=== PATIENT | male | born 1985 | race Caucasian/White ===

== ENCOUNTER 2024-01-25 17:14 | Emergency (ER) | payer OTHER, SELFPAY ==
--- NOTE | ~2024-01-25 | XR_ITS ---
EXAMINATION: XR chest 2V Exam Date/Time: 01/25/2024 17:52 CONTROL TECHNICIAN HISTORY: cough, sob Comparison: None. RESULT: Lines, tubes, and devices: None. Lungs and pleura: Patchy segmental airspace disease in the medial left lower lung. Cardiomediastinal silhouette: Unremarkable. Other: No acute osseous or upper abdominal finding. IMPRESSION: Segmental left lower lobe airspace disease concerning for pneumonia. Reviewed, dictated and finalized at location K. ROL TECHNICIAN
[2024-01-25 17:16] VITALS: BP 134/88; PULSE 120; RESP 20; TEMP 37.7; O2SAT 96
--- NOTE | 2024-01-25 17:32 | ECG_ITS ---
Test Date: 2024-01-25 17:41:00 Measurements Intervals [place] Rate: 114 P: 65 VA: 152 QRS: 153 QRSD: 88 T: 43 QT: 297 QTc: 410 Interpretive Statements SINUS TACHYCARDIA INDETERMINATE AXIS No previous ECG available for comparison Electronically Signed On 01-25-2024 22:00:18 HIP HOP DANCER by Scott Sherman M.D.
[2024-01-25 18:16] LABS: Basophils Percent Auto 0.4 % (0.2-1.2); Eosinophils Percent Auto 0.4 % (0-4.4); Hematocrit 41.5 % (42.0-52.0); Hemoglobin 14.3 g/dL (14.0-18.0); Immature Granulocyte Absolute 0.04 K/mm3 (0.00-0.031); Immature Granulocyte Percent A 0.4 % (0-0.5); Lymphocytes Absolute Auto 0.49 K/mm3 (0.9-3.2); Lymphocytes Percent Auto 5.1 % (18.3-44.2); Mean Corpuscular HGB Conc 34.5 g/dl (32-36); Mean Corpuscular Hemoglobin 30.1 pg (26-34); Mean Corpuscular Volume 87.4 fl (80-100); Mean Platelet Volume 9.4 fl (7.4-10.4); Monocytes Absolute Auto 0.7 K/mm3 (0.1-0.6); Monocytes Percent Auto 7.5 % (2.6-8.5); Neutrophils Absolute Auto 8.3 K/mm3 (1.3-6.7); Neutrophils Percent Auto 86.2 % (45.5-73.1); Platelet Count Result 321 k/mm3 (150-375); Red Blood Count 4.75 M/mm3 (4.6-6.20); Red Cell Distribution Width 13.2 % (11.5-14.5); White Blood Count 9.7 K/mm3 (4.5-10.0)
[2024-01-25 18:26] VITALS: PULSE 105
[2024-01-25 18:26] LABS: Alanine Aminotransferase 45 U/L (6-50); Albumin Level 4.2 g/dL (3.5-5.1); Alkaline Phosphatase 78 U/L (38-126); Anion Gap 4 mmol/L (4-12); Aspartate Amino Transferase 28 U/L (17-59); Bilirubin,Total 0.4 mg/dL (0.2-1.3); Blood Urea Nitrogen 16 mg/dL (9-20); Calcium 9.1 mg/dL (8.4-10.2); Carbon Dioxide 26 mmol/L (22-30); Chloride 107 mmol/L (98-107); Estimated CRCL calculation 108 ml/min; Estimated Glomerular Filt Rate > 60; Glucose 100 mg/dL (65-110); Lipase 78 U/L (23-300); Potassium 4.1 mmol/L (3.4-5.0); Sodium 137 mmol/L (137-145)
[2024-01-25 18:27] VITALS: BP 130/71; PULSE 103; RESP 25; TEMP 37.6; O2SAT 97
--- NOTE | 2024-01-25 18:30 | ED_ITS ---
HPI - Weakness General Chief complaint: Weakness Stated complaint: I feel like shit Time Seen by Provider: 01/25/24 17:43 History of Present Illness HPI Narrative: 38-year-old male presenting with general malaise. States that it started this morning associated with body aches, cough, sore throat. Has been taking Tylenol without relief. Also complains of a headache. States that his brother was actually just diagnosed with pneumonia. Related Data Allergies Allergy/AdvReac Type Severity Reaction Status Date / Time No Known Allergies Allergy Mild Verified 08/31/07 23:09 Review of Systems 2 Review of Systems: All systems reviewed & are unremarkable except as noted in HPI and below Exam 2 Narrative: GENERAL: Nontoxic, looks uncomfortable, cooperative HEAD: Normocephalic, atraumatic. EYES: PERRLA and EOMI. ENT: Mucous membranes moist. NECK: Supple. CHEST: Clear to auscultation. No respiratory distress. HEART: Tachycardic, regular rhythm ABDOMEN: Soft, nontender, nondistended. EXTREMITIES: Normal range of motion. No edema. SKIN: Warm, dry, no rash. NEURO: Alert and oriented x3. PSYCH: Normal mood and affect. Course Vital Signs Vital signs: Vital Signs Temperature 99.8 F H 01/25/24 17:16 Pulse Rate 120 H 01/25/24 17:16 Respiratory Rate 20 01/25/24 17:16 Blood Pressure 134/88 01/25/24 17:16 Pulse Oximetry 96 01/25/24 17:16 Oxygen Delivery Room Air 01/25/24 17:16 Temperature 99.7 F H 01/25/24 18:27 Pulse Rate 103 H 01/25/24 18:27 Respiratory Rate 25 H 01/25/24 18:27 Blood Pressure 130/71 01/25/24 18:27 Pulse Oximetry 97 01/25/24 18:27 Oxygen Delivery Room Air 01/25/24 18:27 MDM - Weakness MDM Narrative Medical decision making narrative: 38-year-old male presenting with general malaise, cough, nausea, headache. Patient is tachycardic on arrival, otherwise vitals are within normal limits. Exam remarkable for the above. Blood work without significant abnormalities. Chest x-ray concerning for left lower lobe pneumonia. Patient is positive for influenza A. Starting him on Tamiflu as his symptoms just started today. Will also cover him with doxycycline given the findings on x-ray. Will send in for some Zofran for the nausea. Discussed Tylenol and ibuprofen for body aches and fevers. Recommend close PCP follow-up. Appropriate return precautions given. He is agreeable this plan. Discharged in stable condition. Differential Diagnosis Differential diagnosis: Likely other (Viral URI, COVID, influenza, pneumonia) Medical Records Attestation: I reviewed the patient's medical records. Lab Data Attestation: I reviewed the patient's lab results. 01/25/24 18:11 01/25/24 18:11 Labs: Lab Results 01/25/24 Range/Units 18:11 WBC 9.7 (4.5-10.0) K/mm3 RBC 4.75 (4.6-6.20) M/mm3 Hgb 14.3 (14.0-18.0) g/dL Hct 41.5 L (42.0-52.0) % MCV 87.4 (80-100) fl MCH 30.1 (26-34) pg MCHC 34.5 (32-36) g/dl RDW 13.2 (11.5-14.5) % Plt Count 321 (150-375) k/mm3 MPV 9.4 (7.4-10.4) fl Immature Gran % (Auto) 0.4 (0-0.5) % Neut % (Auto) 86.2 H (45.5-73.1) % Lymph % (Auto) 5.1 L (18.3-44.2) % [place] % (Auto) 7.5 (2.6-8.5) % Eos % (Auto) 0.4 (0-4.4) % Baso % (Auto) 0.4 (0.2-1.2) % Lymph # (Auto) 0.49 L (0.9-3.2) K/mm3 [place] # (Auto) 0.7 H (0.1-0.6) K/mm3 Eos # (Auto) 0.0 (0-0.3) K/mm3 Baso # (Auto) 0.0 (0.0-0.1) K/mm3 Abs Immat Gran (auto) 0.04 H (0.00-0.031) K/mm3 Absolute Neuts (auto) 8.3 H (1.3-6.7) K/mm3 Absolute Nucleated RBC 0.000 (0.0-0.012) K/mm3 Nucleated RBC % 0.0 (0.0-0.2) % Sodium 137 (137-145) mmol/L Potassium 4.1 (3.4-5.0) mmol/L Chloride 107 (98-107) mmol/L Carbon Dioxide 26 (22-30) mmol/L Anion Gap 4 (4-12) mmol/L BUN 16 (9-20) mg/dL Creatinine 0.90 (0.7-1.3) mg/dL Estim Creat Clear Calc 108 ml/min Estimated GFR > 60 (59 - ) Glucose 100 (65-110) mg/dL Calcium 9.1 (8.4-10.2) mg/dL Total Bilirubin 0.4 (0.2-1.3) mg/dL AST 28 (17-59) U/L ALT 45 (6-50) U/L Alkaline Phosphatase 78 (38-126) U/L Troponin I < 0.012 (0.000-0.034) ng/mL Total Protein 7.0 (6.3-8.2) g/dL Albumin 4.2 (3.5-5.1) g/dL Lipase 78 (23-300) U/L Influenza A (RT-PCR) Positive A (Negative) Influenza B (RT-PCR) Negative (Negative) RSV (RT-PCR) Negative (Negative) SARS-CoV-2 RNA (RT-PCR) Negative (Negative) Imaging Data Radiologist's impression: ITS Impressions Chest X-Ray 01/25/24 18:01 IMPRESSION: Segmental left lower lobe airspace disease concerning for pneumonia. Critical Care Time Critical Care Time Critical Care Time: No Discharge Plan Discharge Clinical Impression: Pneumonia and influenza Patient Disposition: Home, Self-Care Condition: Stable Instructions: Antibiotic Form, Influenza (DC), Community Acquired Pneumonia (DC) Additional Instructions: You tested positive for influenza A today. Please take the Tamiflu as prescribed. We also see pneumonia in your left lung on the chest x-ray. Please complete the antibiotics as prescribed. You may use the Zofran as needed for nausea. Please use Tylenol or ibuprofen/naproxen for body aches and fevers. Make sure to drink plenty of hydrating fluids and rest. Follow-up closely with your PCP. If your symptoms worsen or other concerning symptoms arise, please return to the ER. Patient Language: [place] Island[place] Prescriptions: New doxycycline hyclate 100 mg tablet 100 mg PO BID Qty: 10 0RF oseltamivir [Tamiflu] 75 mg capsule 75 mg PO Q12H 5 Days Qty: 10 0RF ondansetron 4 mg tablet,disintegrating 4 mg PO Q8H PRN (Reason: nausea and vomiting) Qty: 10 0RF Follow-up/Referrals: Mei,Maria Eugenia Collins MD [Primary Care Provider] -
[2024-01-25] MEDS: SODIUM CHLORIDE 0.9% IV 1,000 ML 999 ML IV CONT (18:37)
[2024-01-25 18:38] LABS: Troponin I < 0.012 ng/mL (0.000-0.034)
[2024-01-25] MEDS: KETOROLAC 30 MG/ML VIAL (*BKC) IV PUSH (18:38)
[2024-01-25] MEDS: ONDANSETRON INJ 4 MG/2 ML VIAL IV PUSH (18:38)
[2024-01-25 18:52] LABS: Influenza A QL RT-PCR Positive (Negative); Influenza B QL RT-PCR Negative (Negative); RSV RNA, RT-PCR Negative (Negative); SARS-CoV-2 RNA PCR Negative (Negative)
[2024-01-25] MEDS: DOXYCYCLINE HYCLATE 100 MG TABLET PO (19:16)
[2024-01-25] MEDS: OSELTAMIVIR PHOSPHATE 75 MG CAPSULE PO (19:16)
--- OUTSIDE RECORDS SUMMARY | 2024-01-30 16:38 | XMS_ITS | Encounter Summary ---
Author Organization [facility] Address [address] [place] [address]. 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
--- OUTSIDE RECORDS SUMMARY | 2024-01-30 16:38 | XMS_ITS | Encounter Summary ---
Author Organization [facility] Address [address] [place] [address]. [place], [place] [id number] [place] [id number] Care Team Providers Care Truck Despatcher Name Role Phone Unavailable Primary Care Provider Unavailabl e Encounter Details Date Type Department Care Team (Late st Contact Info) Description 08/09/[address] 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
--- OUTSIDE RECORDS SUMMARY | 2024-01-30 16:38 | XMS_ITS | Encounter Summary ---
Author Organization [facility] Address [address] [place] [address]. 

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
--- OUTSIDE RECORDS SUMMARY | 2024-01-30 16:38 | XMS_ITS | Encounter Summary ---
Author Organization [facility] Address [address] [place] [address]. 

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
--- OUTSIDE RECORDS SUMMARY | 2024-01-30 16:38 | XMS_ITS | Encounter Summary ---
Author Organization [facility] Address [address] [place] [address]. [place], [place] [address] [place] [address] Care Team Providers Care Cullet Trucker Name Role Phone Unavailable Primary Care Provider Unavailabl e Encounter Details Date Type Department Care Team (Late st Contact Info) Description 03/23/1999 Abstract [facility] [address] [place] [address] , Generic Conversion, Social History Tobacco Use Types Packs/Day Years Used Date Smoking Tobacco: Never Assessed Sex and Gender Information Value Date Recorded Sex Assigned at Not on file Legal Sex Male 5:54 PM PALLIATIVE SENIOR NP Gender Identity Not on file Sexual Orientation Not on file documented as of this encounter Plan of Treatment Not on file documented as of this encounter Visit Diagnoses Not on filedocumented in this encounter
--- OUTSIDE RECORDS SUMMARY | 2024-01-30 16:38 | XMS_ITS | Clinical Summary ---
Author Organization [facility] Address [address] [place] [address]. 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 Gender Identity Not on file Sexual Orientation Not on file Plan of Treatment Health Maintenance Due Date Last Done Comments Annual Physical 10/27/1987 Hepatitis C 2002 DTaP, Tdap and Td Vaccines ( 1 - Tdap) 10/27/2003 Hepatitis B Vaccines (1 of 3 - 19+ 3-dose series) 10/27/2003 COVID-19 Vaccine (2023-2 5 season) 2023 Influenza Adult (#1) 2023 HPV Vaccines Aged Out No longer eligi ble based on patient's age to complete this topic Meningococcal Vaccine Aged Out No josé miguel martha eligible based on patient's age to complete this topic Pneumococcal Vaccine: Pediat rics (0 to 5 Years) and At-Risk Patients (6 to 64 Years) Aged Out No longer eligible b ased on patient's age to complete this topic RSV Immunizations Under 20 Months Aged Out No longer eligible based on patient's age to complete this topic
--- OUTSIDE RECORDS SUMMARY | 2024-01-30 16:38 | XMS_ITS | Referral Summary ---
Author Organization [facility] Address [address] [place] [address] Care Team Providers Care Art Critic Name Role Phone Unavailable Primary Care Provider Unavailabl e Source Comments [facility],non-owned Affiliates and Associated Physician Practices is amultiple site organization consisting of ambulatory clinics and hospital sitesin [place], [place]. This disclosure is being madepursuant to the Care Everywhere program and may not contain all information available regarding this patient. Last updated 17.[facility] [employer] Allergies No known active allergies Medications Be [...] Comments Blood Pressure 113/65 12/21/2020 10:30 AM TIER LIFT TRUCK OPERATOR Pulse 93 12/21/2020 8:28 AM TIER LIFT TRUCK OPERATOR Temperature 36.4 ??C (97.6 ??F) 12/21/2020 8:28 AM CS T Respiratory Rate 15 12/21/2020 8:28 AM TIER LIFT TRUCK OPERATOR Oxygen Saturation 97% 12/21/2020 10:52 AM TIER LIFT TRUCK OPERATOR Inhaled Oxygen Concentration - - Weight 95.7 kg (211 lb) 12/21/2020 6:09 AM TIER LIFT TRUCK OPERATOR Height 172.7 cm (5' 8 ) 12/21/2020 6:09 AM TIER LIFT TRUCK OPERATOR Body Mass Index 32.08 12/21/2020 6:09 AM TIER LIFT TRUCK OPERATOR Plan of Treatment Not on file Matthew Chacon Personal/Family Self 1985 [id number] [address] [place] [id number]
--- OUTSIDE RECORDS SUMMARY | 2024-01-30 16:38 | XMS_ITS | Encounter Summary ---
Author Organization [facility] Address [address] [place] [address]. [place], [place] [address] [place] [address] Care Team Providers Care Pharmaceutical Physician Name Role Phone Unavailable Primary Care Provider Unavailabl e Encounter Details Date Type Department Care Team (Late st Contact Info) Description 08/23/2012 Abstract [facility] [address] [facility] [place] [address] Social History Tobacco Use Types Packs/Day Years Used Date Smoking Tobacco: Never Assessed Sex and Gender Information Value Date Recorded Sex Assigned at Not on file Legal Sex Male 5:54 PM FLOOR PRESS OPERATOR Gender Identity Not on file Sexual Orientation Not on file documented as of this encounter Plan of Treatment Not on file documented as of this encounter Visit Diagnoses Diagnosis Calculus of ureter documented in this encounter
--- OUTSIDE RECORDS SUMMARY | 2024-01-30 16:38 | XMS_ITS | Encounter Summary ---
Author Organization [facility] Address [address] [place] [address]. 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
--- OUTSIDE RECORDS SUMMARY | 2024-01-30 16:38 | XMS_ITS | Encounter Summary ---
Author Organization [facility] Address [address] [place] [address]. 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
--- OUTSIDE RECORDS SUMMARY | 2024-01-30 16:38 | XMS_ITS | Encounter Summary ---
Author Organization [facility] Address [address] [place] [address]. [place], [place] [address] [place] [address] Care Team Providers Care Weeder Name Role Phone Unavailable Primary Care Provider Unavailabl e Encounter Details Date Type Department Care Team (Late st Contact Info) Description 05/05/1996 Abstract [facility] [address] [place] [address] , Generic Conversion, Social History Tobacco Use Types Packs/Day Years Used Date Smoking Tobacco: Never Assessed Sex and Gender Information Value Date Recorded Sex Assigned at Not on file Legal Sex Male 5:54 PM WORKER'S COMPENSATION CLAIMS EXAMINER Gender Identity Not on file Sexual Orientation Not on file documented as of this encounter Plan of Treatment Not on file documented as of this encounter Visit Diagnoses Not on filedocumented in this encounter
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
--- OUTSIDE RECORDS SUMMARY | 2024-01-30 18:53 | XMS_ITS | Clinical Summary ---
Author Organization [facility] Address [address] [place] [address]. [place] [address] Care Team Providers Care Emergency Department Name Role Phone Unavailable Primary Care Provider Unavailabl e Social History Tobacco Use Types Packs/Day Years Used Date Smoking Tobacco: Never Assessed Sex and Gender Information Value Date Recorded Sex Assigned at Not on file Legal Sex Male 5:54 PM PROGRAM SPECIALIST Gender Identity Not on file Sexual Orientation [...]
--- OUTSIDE RECORDS SUMMARY | 2024-01-30 18:53 | XMS_ITS | Encounter Summary ---
Author Organization [facility] Address [address] [place] [address]. [place], [place] [address] [place] [address] Care Team Providers Care Core Winder Machine Operator Name Role Phone Unavailable Primary Care Provider Unavailabl e Encounter Details Date Type Department Care Team (Late st Contact Info) Description 08/09/[address] [facility] [address] [place] [address] Norman Vazquez MD [address] [place] [id number] Social History Tobacco Use Types Packs/Day Years Used Date Smoking Tobacco: Never Assessed Sex and Gender Information Value Date Recorded Sex Assigned at Not on file Legal Sex Male 5:54 PM STROKE PROGRAM COORDINATOR Gender Identity Not on file Sexual Orientation Not on file documented as of this encounter Plan of Treatment Not on file documented as of this encounter Visit Diagnoses Diagnosis Right upper quadrant pain Abdominal pain, right upper quadrant documented in this encounter
--- OUTSIDE RECORDS SUMMARY | 2024-01-30 18:53 | XMS_ITS | Encounter Summary ---
Author Organization [facility] Address [address] [place] [address]. [place], [place] [address] [place] [address] Care Team Providers Care Financial Aid Officer Name Role Phone Unavailable Primary Care Provider Unavailabl e Encounter Details Date Type Department Care Team (Late st Contact Info) Description 12/13/1999 Abstract [facility] [address] [place] [address] , Generic Conversion, Social History Tobacco Use Types Packs/Day Years Used Date Smoking Tobacco: Never Assessed Sex and Gender Information Value Date Recorded Sex Assigned at Not on file Legal Sex Male 5:54 PM ENGINE REPAIRER SERVICE Gender Identity Not on file Sexual Orientation Not on file documented as of this encounter Plan of Treatment Not on file documented as of this encounter Visit Diagnoses Not on filedocumented in this encounter
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
--- OUTSIDE RECORDS SUMMARY | 2024-01-30 18:53 | XMS_ITS | Referral Summary ---
Author Organization [facility] Address [address] [place] [address] Care Team Providers Care Medication Tech Name Role Phone Unavailable Primary Care Provider Unavailabl e Source Comments [facility],non-owned Affiliates and Associated Physician Practices is amultiple site organization consisting of ambulatory clinics and hospital sitesin [place], [place], [place] and [place]. This disclosure is being madepursuant to the Care Everywhere program and may not contain all information available regarding this patient. Last updated 17.[facility] [place] Allergies No known active allergies Medications Be [...] Comments Blood Pressure 113/65 12/21/2020 10:30 AM [employer] Pulse 93 12/21/2020 8:28 AM [employer] TA[employer] Temperature 36.4 ??C (97.6 ??F) 12/21/2020 8:28 AM CS T Respiratory Rate 15 12/21/2020 8:28 AM [employer]TER[employer] TAILOR Oxygen Saturation 97% 12/21/2020 10:52 AM [employer] TAILOR Inhaled Oxygen Concentration - - Weight 95.7 kg (211 lb) 12/21/2020 6:09 AM [employer] ALTER[employer] TAILOR Height 172.7 cm (5' 8 ) 12/21/2020 6:09 AM [employer]TER[employer] TAILOR Body Mass Index 32.08 12/21/2020 6:09 AM [employer] ALTERATION TAILOR Plan of Treatment Not on file Matthew Chacon Personal/Family Self 1985 [id number] [address] [place] [address]
--- OUTSIDE RECORDS SUMMARY | 2024-01-30 18:53 | XMS_ITS | Encounter Summary ---
Author Organization [facility] Address [address] [place] [address]. 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
--- OUTSIDE RECORDS SUMMARY | 2024-01-30 18:53 | XMS_ITS | Encounter Summary ---
Author Organization [facility] Address [address] [place] [address]. 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
--- OUTSIDE RECORDS SUMMARY | 2024-01-30 18:53 | XMS_ITS | Encounter Summary ---
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 Diagnosis [...] 8 hours. $ Given 12/21/2020 9:14 AM SAFETY ADMIN ASSISTANT 3 mL cyclobenzaprine (Flexeril) tablet 10 mg 10 mg, Oral, NOW, 1 dose, On Allison 12/21/20 at 0900 $ Given 12/21/2020 9:05 AM SAFETY ADMIN ASSISTANT 10 mg fentaNYL (PF) (Sublimaze) injection 50 mcg 50 mcg, Intravenous, NOW, 1 dose, On Allison 12/21/20 at 0615 $ Given 12/21/2020 6:53 AM SAFETY ADMIN ASSISTANT 50 mcg iopamidol (Isovue 370) 76 % contrast Intravenous, CONTRAST ONCE, Starting on Allison 12/21/20 at 0614, Until Allison 12/21/20 at 1318 $ Given - Contrast 12/21/2020 6:15 AM SAFETY ADMIN ASSISTANT 100 mL lactated ringers IV bolus 1,000 mL, at 983.61 mL/hr, Administer over 61 Minutes, NOW, 1 dose, On Allison 12/21/20 at 0615 $ New Bag/Syringe 12/21/2020 6:54 AM SAFETY ADMIN ASSISTANT 1,000 mL 983.61 mL/hr ondansetron (Zofran) injection 4 mg 4 mg, Intravenous, EVERY 4 HOURS PRN, Nausea/Vomiting, Starting on Allison 12/21/20 at 0639, Until Allison 12/21/20 at 1318, Administer over 2 to 5 minutes. $ Given 12/21/2020 6:53 AM SAFETY ADMIN ASSISTANT 4 mg oxyCODONE-acetaminophe n (Percocet) 5-325 MG tablet 1 tablet 1 tablet, Oral, NOW, 1 dose, On Allison 12/21/20 at 0745 $ Given 12/21/2020 8:14 AM SAFETY ADMIN ASSISTANT 1 tablet oxyCODONE-acetaminophe n (Percocet) 5-325 MG tablet 1 tablet 1 tablet, Oral, EVERY 6 HOURS PRN, Moderate Pain, Starting on Allison 12/21/20 at 0737, Until Allison 12/21/20 at 1318 $ Given 12/21/2020 12:16 PM SAFETY ADMIN ASSISTANT 1 tablet documented in this encounter Active and Recently Administered Medications Times are shown in SAFETY ADMIN ASSISTANT. Scheduled Medication Order 12/19/2020 12/20/2020 12/21/2020 0.9% [...] 0653 ($ Given - Prov ider: Stephanie Sandesron RN) iopamidol (Isovue 370) 76 % contrast [...] On Allison 12/21/20 at 0745 0814 ($ Hexoskin ([employer]) - Prov ider: Rose Gavin, MONSERRAT) PRN [...] over 2 to 5 minutes. 0653 ($ Hexoskin ([employer]) - Prov ider: Stephanie Sanderson RN) oxyCODONE-acetaminophen (Percocet) 5-325 MG tablet 1 tablet 1 tablet, Oral, EVERY 6 HOURS PRN, Moderate Pain, Starting on Allison 12/21/20 at 0737, Until Allison 12/21/20 at 1318 1216 ($ Hexoskin ([employer]) - Prov ider: Tracy Acosta RN) Linked [...]
--- OUTSIDE RECORDS SUMMARY | 2024-01-30 18:54 | XMS_ITS | Encounter Summary ---
Author Organization [facility] Address [address] [place] [address]. 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
--- OUTSIDE RECORDS SUMMARY | 2024-01-30 18:54 | XMS_ITS | Encounter Summary ---
Author Organization [facility] Address [address] [place] [address]. [place], [place] [id number] [place] [address] Care Team Providers Care Manager Bench Name Role Phone Unavailable Primary Care Provider Unavailabl e Encounter Details Date Type Department Care Team (Late st Contact Info) Description 04/06/1996 Abstract [facility] CONVERSION [address] [place] [address] , Generic Conversion, Social History Tobacco Use Types Packs/Day Years Used Date Smoking Tobacco: Never Assessed Sex and Gender Information Value Date Recorded Sex Assigned at Not on file Legal Sex Male 5:54 PM RN ACUTE DIALYSIS Gender Identity Not on file Sexual Orientation Not on file documented as of this encounter Plan of Treatment Not on file documented as of this encounter Visit Diagnoses Not on filedocumented in this encounter
--- OUTSIDE RECORDS SUMMARY | 2024-01-30 18:54 | XMS_ITS | Encounter Summary ---
Author Organization [facility] Address [address] [place] [address]. [place], [place] [id number] [place] [address] Care Team Providers Care House Calls Nurse Name Role Phone Unavailable Primary Care Provider Unavailabl e Encounter Details Date Type Department Care Team (Late st Contact Info) Description 12/03/1999 Abstract [facility] CONVERSION [address] [place] [address] , Generic Conversion, Social History Tobacco Use Types Packs/Day Years Used Date Smoking Tobacco: Never Assessed Sex and Gender Information Value Date Recorded Sex Assigned at Not on file Legal Sex Male 5:54 PM PLY BANDER Gender Identity Not on file Sexual Orientation Not on file documented as of this encounter Plan of Treatment Not on file documented as of this encounter Visit Diagnoses Not on filedocumented in this encounter
--- OUTSIDE RECORDS SUMMARY | 2024-01-30 18:54 | XMS_ITS | Encounter Summary ---
Author Organization [facility] Address [address] [place] [address]. 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
--- OUTSIDE RECORDS SUMMARY | 2024-01-30 18:54 | XMS_ITS | Encounter Summary ---
Author Organization [facility] Address [address] [place] [address]. [place], [place] [phone] [place] [address] Care Team Providers Care Ballet Soloist Name Role Phone Unavailable Primary Care Provider Unavailabl e Encounter Details Date Type Department Care Team (Late st Contact Info) Description 05/05/1996 Abstract [facility] CONVERSION [address] [place] [address] , Generic Conversion, Social History Tobacco Use Types Packs/Day Years Used Date Smoking Tobacco: Never Assessed Sex and Gender Information Value Date Recorded Sex Assigned at Not on file Legal Sex Male 5:54 PM ROLL COVERER Gender Identity Not on file Sexual Orientation Not on file documented as of this encounter Plan of Treatment Not on file documented as of this encounter Visit Diagnoses Not on filedocumented in this encounter
== END 2024-01-25 20:07 | disposition home or self-care (01) ==
PROVIDERS: Emergency Provider Emergency Medicine; PCP Family Medicine
DX: J10.00 Influenza due to other identified influenza virus with unspecified type of pneumonia (principal); Z20.822 Contact with and (suspected) exposure to COVID-19
CPT/HCPCS: 36415; 71046; 80053; 83690; 84484; 85025; 87637; 93005; 96361; 96374; 96375; 99284; A9270; J1885; J2405; J7030